=== PATIENT | female | born 1970 | race Caucasian/White ===

== ENCOUNTER 2018-01-01 15:04 | Day surgery (SDC) | payer OTHER ==
[~2018-01-01] VITALS: Ht 162.6 cm; Wt 56.7 kg
== END 2018-01-02 12:20 | disposition home or self-care (01) ==
LOC: ER 15:04 → CIR.AMB 01-02 07:14
DX: N93.8 Other specified abnormal uterine and vaginal bleeding (principal)

== ENCOUNTER 2018-01-13 05:46 | Inpatient (IN) | payer OTHER ==
[~2018-01-13] VITALS: Ht 195.6 cm; Wt 59.0 kg
== END 2018-01-15 11:16 | DRG 743 ==
LOC: SURG-SUITE 05:46 → O/R 05:46 → SURH 07:00 → OB/GYN 10:34 → SURG-SUITE 10:51
PROVIDERS: Obstetrics & Gynecology
PROC: 0UT00ZZ Resection of Right Ovary, Open Approach (ICD-10-PCS; 2018-01-13)
PROC: 0UT50ZZ Resection of Right Fallopian Tube, Open Approach (ICD-10-PCS; 2018-01-13)
PROC: 0UT90ZZ Resection of Uterus, Open Approach (ICD-10-PCS; principal; 2018-01-13 07:00)
DX: N93.8 Other specified abnormal uterine and vaginal bleeding (principal); N72 Inflammatory disease of cervix uteri; N83.8 Other noninflammatory disorders of ovary, fallopian tube and broad ligament